=== PATIENT | male | born 1955 | race Caucasian/White ===

== ENCOUNTER 2021-03-13 21:53 | Emergency (ER) | payer MEDICARE, OTHER ==
[~2021-03-13] VITALS: Ht 182.9 cm; Wt 111.1 kg
[~2021-03-13 21:53] MED LIST: BACTRIM DS TAB1 EACH PO; HUMALOG MI100 UNIT/5 SC; LASIX40 MG PO; PEPCID40 MG PO; PROGRAF1 MG PO; SPIRONOLACTONE50 MG PO; TRUVADA 200 MG1 EACH PO; URSODIOL300 MG PO
[2021-03-13] MEDS ORDERED: DEXAMETHASONE SOD PHOS 10 MG/1 ML VIAL IM ONE (22:00)
[2021-03-13] MEDS ORDERED: HYDROCODON-ACE1 EAC9 PO (22:59)
[2021-03-13] MEDS ORDERED: PREDNISONE20 MG PO (22:59)
== END 2021-03-13 23:19 | disposition home or self-care (01) ==
LOC: ER 21:59
DX: M25.562 Pain in left knee (principal); M17.12 Unilateral primary osteoarthritis, left knee; Z94.4 Liver transplant status
CPT/HCPCS: 73562; 99283; J1100